=== PATIENT | female | born 1995 | race Caucasian/White ===

== ENCOUNTER 2017-09-21 19:55 | Emergency (ER) | payer MEDICAID ==
[2017-09-21] MEDS ORDERED: Ipratropium Neb 0.5 mg/2.5 mL UD HHN STA (20:35)
[2017-09-21] MEDS ORDERED: Ipratropium Neb 0.5 mg/2.5 mL UD HHN ONE (20:45)
[2017-09-21 21:46] LABS: % BASOPHILS 0.2 % (0.0-2.0); % EOSINOPHILS 3.1 % (0.0-5.0); % LYMPHOCYTES 22.2 % (20.0-50.0); % NEUTROPHILS 69.5 % (40.0-80.0); EOSINOPHILE ABSOLUTE 0.3 Th/cmm (0.1-0.4); HEMATOCRIT 43.3 % (41.0-60); HEMOGLOBIN 14.6 gm/dL (12-16); LYMPHOCYTE ABSOLUTE 1.9 Th/cmm (1.5-3.0); MEAN CELL VOLUME 90.2 fl (81-100); MEAN CORPUSCULAR HEMOGLOBIN 30.4 pg (27.0-31.0); MEAN CORPUSCULAR HGB CONC 33.7 pg (28.0-36.0); MEAN PLATELET VOLUME 7.7 fl; MONOCYTE ABSOLUTE 0.4 Th/cmm (0.3-1.0); NEUTROPHILE ABSOLUTE 6.1 Th/cmm (1.8-8.0); PLATELET COUNT 276 Th/cmm (150-400); RED CELL DISTRIBUTION WIDTH 12.4 % (11.5-20.0); WHITE BLOOD COUNT 8.7 Th/cmm (4.8-10.8)
[2017-09-21 21:59] LABS: ALB/GLOB RATIO 1.3 (1.0-1.8); ALBUMIN 4.3 gm/dL (3.7-5.3); ALKALINE PHOSPHATASE 46 U/L (34-104); ANION GAP 12.4 (7.0-16.0); BILIRUBIN,TOTAL 0.2 mg/dL (0.3-1.0); BUN - UREA NITROGEN 9 mg/dL (7-25); CALCIUM SERUM 9.7 mg/dL (8.6-10.3); CARBON DIOXIDE 25.7 mEq/L (21.0-31.0); CHLORIDE 102 mEq/L (98-107); CREATININE - SERUM 0.5 mg/dL (0.6-1.2); GFR AFRICAN-AMERICAN > 60.0 ml/min (>90); GFR NON AFRICAN-AMERICAN > 60.0 ml/min; GLUCOSE 102 mg/dL (70-105); POTASSIUM SERUM 4.1 mEq/L (3.5-5.1); SGOT 13 U/L (13-39); SGPT/ALT 16 U/L (7-52); SODIUM SERUM 136 mEq/L (136-145); TOTAL PROTEIN,SERUM 7.5 gm/dL (6.0-8.3)
--- NOTE | 2017-09-21 22:05 | ED Physician Chart ---
ED Chief Complaint/HPI - Patient Information Date Seen:: 09/21/17 Time Seen:: 20:30 Chief Complaint:: Cough History of Present Illness:: 22 yo female had cough and congestion for 2 days. She had SOB since last night. She had history of mild intermittent asthma and she ran out of inhaler. Denied fever. Allergies:: Allergies Allergy/AdvReac Type Severity Reaction Status Date / Time No Known Allergies Allergy Verified 09/21/17 20:20 Vitals:: Vital Signs - 8 hr 09/21/17 09/21/17 20:05 20:50 Temp 97.4 F HR 104 108 RR 20 20 BP 125/70 O2 Sat % 96 96 ED Review of Systems - Review of Systems General/Constitutional: No fever Skin: No bruising Head: No headache Eyes: No pain ENT: No nasal drainage Neck: No neck pain Cardio Vascular: No chest pain Pulmonary: Cough, Sputum, Wheezing GI: No nausea, No vomiting Musculoskeletal: No bone or joint pain Neurological: No focal symptoms ED Past Medical History - Past Medical History Past Medical History: Asthma/COPD, Other () Social History: Non Smoker, No Alcohol, No Drug Use Surgical History: (x 2) Family Medical History - Family Member Mother History Unknown: Yes ED Physical Exam - Physical Examination General/Constitutional: Awake Head: Atraumatic Eyes: PERRL Skin: No ecchymosis ENMT: Nasal exam nl Neck: No nuchal rigidity Other Respiratory comments:: Expirational wheezing Cardio Vascular: RRR, No murmur, gallop, rubs, NL S1 S2 Other Cardio Vascular comments:: tachycardia GI: No tenderness/rebounding/guarding Extremities: normal strength in all extremities Neuro/Psych: No focal deficits ED Labs/Radiology/EKG Results - Lab Results Results: Laboratory Tests 09/21/17 09/21/17 21:20 21:20 WBC 8.7 RBC 4.80 Hgb 14.6 Hct 43.3 MCV 90.2 MCH 30.4 MCHC Differential 33.7 RDW 12.4 Plt Count 276 MPV 7.7 Neutrophils % 69.5 Lymphocytes % 22.2 Monocytes % 5.0 Eosinophils % 3.1 Basophils % 0.2 Sodium 136 Potassium 4.1 Chloride 102 Carbon Dioxide 25.7 Anion Gap 12.4 BUN 9 Creatinine 0.5 L Est GFR ( Amer) > 60.0 Est GFR (Non-Af Amer) > 60.0 BUN/Creatinine Ratio 18.0 Glucose 102 Calcium 9.7 Total Bilirubin 0.2 L AST 13 ALT 16 Alkaline Phosphatase 46 Total Protein 7.5 Albumin 4.3 Globulin 3.2 Albumin/Globulin Ratio 1.3 - Radiology Results Results: CXR: No focal consolidation ED Assessment - Assessment General Assessment: Asthma Bronchitis Assessment/Comments:: CBC, CMP Atrovent Neb Azithromycin 500mg po x 1 D/c home Ventolin HFA Azithromycin 250mg po qd x 4 days F/u PCP or return to ER if symptoms worsen ED Septic Shock - . Is Septic Shock (SBP<90, OR Lactate>4 mmol\L) present?: No - <6hrs of presentation: Vital Signs: Vital Signs - 8 hr 09/21/17 09/21/17 20:05 20:50 Temp 97.4 F HR 104 108 RR 20 20 BP 125/70 O2 Sat % 96 96 ED Reassessment (Disposition) - Reassessment Reassessment Condition:: Improved - Patient Disposition Discharge/Transfer:: Home ED Discharge Plan - Patient Disposition Admit/Discharge/Transfer: PT DISCHARGED HOME Condition at Disposition: Improved Instructions: Asthma, Adult Additional Instructions: FILL YOUR PRESCRIPTION AND TAKE IT DIRECTED. FOLLOW UP WITH YOUR REGULAR DOCTOR OR AT YOUR LOCAL MEDICAL CLINIC.
--- NOTE | 2017-09-22 08:08 | Diagnostic Imaging Report ---
CHEST X-RAY: AP view INDICATION: Cough COMPARISON: None FINDINGS: There is no focal consolidation or pleural effusions The heart is normal in size. The osseous structures demonstrate no acute abnormalities. IMPRESSION: No focal airspace consolidation identified.
== END 2017-09-21 22:15 | disposition home or self-care (01) ==
LOC: ER 19:55
DX: J45.909 Unspecified asthma, uncomplicated (principal); J40 Bronchitis, not specified as acute or chronic; J44.9 Chronic obstructive pulmonary disease, unspecified
CPT/HCPCS: 36415-UA; 71045-TC; 80053-TC; 85025-TC; 90779; 94640

== ENCOUNTER 2017-10-17 09:18 | Emergency (ER) | payer MEDICAID ==
[2017-10-17] MEDS ORDERED: Sodium Chloride 0.9% 1,000 ML IV ONE (09:50)
[2017-10-17 10:00] LABS: URINE MICROSCOPIC INDICATED? YES; URINE SOURCE CLEAN C
--- NOTE | 2017-10-17 10:00 | ED Physician Chart ---
ED Chief Complaint/HPI - Patient Information Date Seen:: 10/17/17 Time Seen:: 09:55 Chief Complaint:: abd pain diarhea History of Present Illness:: 22 yr old female in good health with mild upper abd pains and then diarhea pt denies vomiting slightly improved mild weakness no dizziness Allergies:: Allergies Allergy/AdvReac Type Severity Reaction Status Date / Time No Known Allergies Allergy Verified 09/21/17 20:20 Vitals:: Vital Signs - 8 hr 10/17/17 09:28 Temp 97.9 F HR 90 RR 15 BP 104/59 O2 Sat % 96 Historian:: Patient ED Review of Systems - Review of Systems General/Constitutional: No fever, No chills, No weight loss, No weakness, No diaphoresis, No edema, No loss of appetite Skin: No skin lesions, No rash, No bruising Head: No headache, No light-headedness Eyes: No loss of vision, No pain, No diplopia ENT: No earache, No nasal drainage, No sore throat, No tinnitus Neck: No neck pain, No swelling, No thyromegaly, No stiffness, No mass noted Cardio Vascular: No chest pain, No palpitations, No PND, No orthopnea, No edema Pulmonary: No SOB, No cough, No sputum, No wheezing GI: No vomiting, Diarrhea, Pain, No melena, No hematochezia, No constipation, No hematemesis G/U: No dysuria, No frequency, No hematuria Musculoskeletal: No bone or joint pain, No back pain, No muscle pain Endocrine: No polyuria, No polydipsia Psychiatric: No prior psych history, No depression, No anxiety, No suicidal ideation Hematopoietic: No bruising, No lymphadenopathy Allergic/Immuno: No urticaria, No angioedema Neurological: No syncope, No focal symptoms, No weakness, No paresthesia, No headache, No seizure, No dizziness, No confusion, No vertigo ED Past Medical History - Past Medical History Past Medical History: Asthma/COPD Family Medical History - Family Member Mother History Unknown: Yes ED Physical Exam - Physical Examination Other GI comments:: mild upper abd tend no perioteneal signs or rebound no masses ED Assessment - Assessment General Assessment: abd pain diarhea ED Septic Shock - . Is Septic Shock (SBP<90, OR Lactate>4 mmol\L) present?: No - <6hrs of presentation: Vital Signs: Vital Signs - 8 hr 10/17/ 09:28 Temp 97.9 F HR 90 RR 15 BP 104/59 O2 Sat % 96 ED Reassessment (Disposition) - Diagnosis Diagnosis:: abd pain ,diahear gastroenteritis s/p one liter NS no vomiting pt improved stable f/pmd for stool cx rx bactrim ds hcg neg - Patient Disposition Discharge/Transfer:: Home (REST FLUIDS F/U PMR RX BACTRIM DS) ED Discharge Plan - Patient Disposition Condition at Disposition: Stable
[2017-10-17] MEDS ORDERED: Albuterol/Ipratropium Neb 3 ML AERS HHN ONE ×2 (10:01→10:18)
[2017-10-17 10:08] LABS: URINE BILIRUBIN NEGATIVE (NEGATIVE); URINE BLOOD MODERATE (NEGATIVE); URINE GLUCOSE (UA) NEGATIVE (NEGATIVE); URINE KETONE NEGATIVE (NEGATIVE); URINE LEUKOCYTE ESTERASE NEGATIVE (NEGATIVE); URINE NITRATE NEGATIVE (NEGATIVE); URINE PROTEIN NEGATIVE (NEGATIVE); URINE UROBILINOGEN 0.2 E.U./dL (0.2 - 1.0)
[2017-10-17 10:13] LABS: % BASOPHILS 0.2 % (0.0-2.0); % EOSINOPHILS 1.6 % (0.0-5.0); % LYMPHOCYTES 14.8 % (20.0-50.0); % NEUTROPHILS 79.4 % (40.0-80.0); EOSINOPHILE ABSOLUTE 0.1 Th/cmm (0.1-0.4); HEMATOCRIT 44.6 % (41.0-60); LYMPHOCYTE ABSOLUTE 1.3 Th/cmm (1.5-3.0); MEAN CORPUSCULAR HEMOGLOBIN 30.3 pg (27.0-31.0); MEAN CORPUSCULAR HGB CONC 33.7 pg (28.0-36.0); MEAN PLATELET VOLUME 7.5 fl; MONOCYTE ABSOLUTE 0.3 Th/cmm (0.3-1.0); NEUTROPHILE ABSOLUTE 6.9 Th/cmm (1.8-8.0); PLATELET COUNT 330 Th/cmm (150-400); RED BLOOD COUNT 4.96 Mil/cmm (3.80-5.10); RED CELL DISTRIBUTION WIDTH 12.7 % (11.5-20.0); WHITE BLOOD COUNT 8.6 Th/cmm (4.8-10.8)
[2017-10-17 10:15] LABS: URINE CLARITY TURBID (CLEAR); URINE COLOR YELLOW
[2017-10-17 10:24] LABS: URINE EPITHELIAL CELLS FEW /lpf (FEW)
[2017-10-17 10:25] LABS: URINE BACTERIA FEW /hpf (NONE SEEN)
[2017-10-17 10:26] LABS: ALB/GLOB RATIO 1.6 (1.0-1.8); ALBUMIN 4.5 gm/dL (3.7-5.3); ALKALINE PHOSPHATASE 39 U/L (34-104); ANION GAP 12.4 (7.0-16.0); BILIRUBIN,TOTAL 0.6 mg/dL (0.3-1.0); BUN - UREA NITROGEN 15 mg/dL (7-25); CALCIUM SERUM 9.1 mg/dL (8.6-10.3); CARBON DIOXIDE 20.3 mEq/L (21.0-31.0); CHLORIDE 105 mEq/L (98-107); CREATININE - SERUM 0.5 mg/dL (0.6-1.2); GFR AFRICAN-AMERICAN > 60.0 ml/min (>90); GFR NON AFRICAN-AMERICAN > 60.0 ml/min; GLUCOSE 94 mg/dL (70-105); POTASSIUM SERUM 3.7 mEq/L (3.5-5.1); SGOT 17 U/L (13-39); SGPT/ALT 19 U/L (7-52); SODIUM SERUM 134 mEq/L (136-145); TOTAL PROTEIN,SERUM 7.4 gm/dL (6.0-8.3)
== END 2017-10-17 11:30 | disposition home or self-care (01) ==
LOC: ER 09:18
DX: K52.9 Noninfective gastroenteritis and colitis, unspecified (principal); J44.9 Chronic obstructive pulmonary disease, unspecified; J45.909 Unspecified asthma, uncomplicated
CPT/HCPCS: 36415-UA; 80053-TC; 81001-TC; 81025-TC; 85025-TC; 87086-90; J7030; Z7502

== ENCOUNTER 2018-11-16 22:05 | Emergency (ER) | payer SELFPAY ==
--- NOTE | 2018-11-16 22:12 | ED Physician Chart ---
ED Chief Complaint/HPI - Patient Information Date Seen:: 11/16/18 Time Seen:: 22:08 Chief Complaint:: dysuria History of Present Illness:: 23 yr old with back pain and dysuria for 4 days Allergies:: Allergies Allergy/AdvReac Type Severity Reaction Status Date / Time No Known Allergies Allergy Verified 09/21/17 20:20 ED Review of Systems - Review of Systems General/Constitutional: No fever Skin: No skin lesions Head: No headache Eyes: No loss of vision ENT: No earache Neck: No neck pain Cardio Vascular: No chest pain Pulmonary: No SOB GI: No vomiting G/U: Dysuria Musculoskeletal: Back pain Endocrine: No polyuria Psychiatric: No prior psych history ED Past Medical History - Past Medical History Past Medical History: No significant medical hx Family Medical History - Family Member Mother History Unknown: Yes ED Physical Exam - Physical Examination General/Constitutional: Awake, Well-developed, well-nourished, Alert, No distress, GCS 15, Non-toxic appearing, Ambulatory Head: Atraumatic Eyes: Lids, conjuctiva normal, PERRL, EOMI Skin: Nl inspection, No rash, No skin lesions, No ecchymosis, Well hydrated, No lymphadenopathy ENMT: External ears, nose nl, Nasal exam nl, Lips, teeth, gums nl Neck: Nontender, Full ROM w/o pain, No JVD, No nuchal rigidity, No bruit, No mass, No stridor Respiratory: Nl effort/Exclusion, Clear to Auscultation, No Wheeze/Rhonchi/Rales Cardio Vascular: RRR, No murmur, gallop, rubs, NL S1 S2 GI: No tenderness/rebounding/guarding, No organomegaly, No hernia, Normal BS's, Nondistended, No mass/bruits, No McBurney tenderness : No CVA tenderness Other comments:: dysuria , rt flank pain Extremities: No tenderness or effusion, Full ROM, normal strength in all extremities, No edema, Normal digits & nails Neuro/Psych: Alert/oriented, DTR's symmetric, Normal sensory exam, Normal motor strength, Judgement/insight normal, Mood normal, Normal gait, No focal deficits Misc: Normal back, No paraspinal tenderness ED Assessment - Assessment General Assessment: dysuria uti ED Septic Shock - . Is Septic Shock (SBP<90, OR Lactate>4 mmol\L) present?: No ED Reassessment (Disposition) - Reassessment Reassessment:: dysuria uti - Aftercare/Follow up Instructions Aftercare/Follow-Up Instructions:: Counseled pt regarding lab results/diagnosis & need follow up Medication Prescribed:: bactrim - Patient Disposition Discharge/Transfer:: Home Condition at Disposition:: Stable
[2018-11-16 22:21] LABS: URINE SOURCE CLEAN C
[2018-11-16 22:24] LABS: URINE BILIRUBIN NEGATIVE (NEGATIVE); URINE BLOOD MODERATE (NEGATIVE); URINE GLUCOSE (UA) NEGATIVE (NEGATIVE); URINE KETONE NEGATIVE (NEGATIVE); URINE LEUKOCYTE ESTERASE MODERATE (NEGATIVE); URINE MICROSCOPIC INDICATED? YES; URINE NITRATE NEGATIVE (NEGATIVE); URINE PROTEIN TRACE mg/dL (NEGATIVE); URINE UROBILINOGEN 0.2 E.U./dL (0.2 - 1.0)
[2018-11-16 22:31] LABS: URINE CLARITY HAZY (CLEAR); URINE COLOR YELLOW
[2018-11-16 22:34] LABS: URINE BACTERIA FEW /hpf (NONE SEEN); URINE EPITHELIAL CELLS FEW /lpf (FEW)
== END 2018-11-16 22:47 | disposition home or self-care (01) ==
LOC: ER 22:05
DX: N39.0 Urinary tract infection, site not specified (principal)
CPT/HCPCS: 81001-TC; 81025-TC; 87086-90; Z7502